=== PATIENT | male | born 1990 | race Caucasian/White ===

== ENCOUNTER 2019-08-26 17:39 | Emergency (ER) | payer MEDICAID, OTHER ==
[~2019-08-26] VITALS: Ht 185.4 cm; Wt 81.0 kg
[2019-08-26 17:45] VITALS: BP 132/85
--- NOTE | 2019-08-26 20:00 | NUR ---
PROVIDER LISSY AT BEDSIDE, EDUCATING ON SUBOXONE
[2019-08-26] MEDS ORDERED: HYDR-3686 PO (20:09)
[2019-08-26] MEDS ORDERED: ONDA4TAB6 PO (20:09)
[2019-08-26] MEDS ORDERED: CLON-529 PO (20:09)
== END 2019-08-26 20:25 | disposition home or self-care (01) ==
LOC: ER 17:40
DX: Z02.89 Encounter for other administrative examinations (principal); Z88.5 Allergy status to narcotic agent
CPT/HCPCS: 99283

== ENCOUNTER 2019-08-27 17:52 | Emergency (ER) | payer MEDICAID, OTHER ==
[~2019-08-27] VITALS: Ht 185.4 cm; Wt 81.8 kg
[~2019-08-27 17:52] MED LIST: CLON-529 PO; HYDR-3686 PO; ONDA4TAB6 PO
[2019-08-27 18:09] VITALS: BP 148/95
[2019-08-27] MEDS ORDERED: buprenorphine/naloxone 8mg/2mg SL tablet SL STA (18:17)
[2019-08-27] MEDS ORDERED: buprenorphine/naloxone 2-0.5mg sublingual tablet SL STA (18:24)
[2019-08-27] MEDS ORDERED: ondansetron 4mg rapidly disintigrating tab PO ONE (18:25)
== END 2019-08-27 19:08 | disposition home or self-care (01) ==
LOC: ER 17:53
DX: F11.23 Opioid dependence with withdrawal (principal); F17.200 Nicotine dependence, unspecified, uncomplicated; R10.30 Lower abdominal pain, unspecified; Z88.5 Allergy status to narcotic agent; Z79.899 Other long term (current) drug therapy
CPT/HCPCS: 99283

== ENCOUNTER 2019-09-05 14:40 | Emergency (ER) | payer MEDICAID, OTHER | END 2019-09-05 15:08 | disposition left against medical advice (07) | LOC: ER 14:40 | DX: H91.90 Unspecified hearing loss, unspecified ear (principal); Z53.21 Procedure and treatment not carried out due to patient leaving prior to being seen by health care provider ==

== ENCOUNTER 2019-11-14 11:33 | Emergency (ER) | payer SELFPAY ==
[~2019-11-14] VITALS: Ht 185.4 cm; Wt 83.4 kg
[~2019-11-14 11:33] MED LIST changes: -HYDR-3686 PO
[2019-11-14 11:46] VITALS: BP 132/79
[2019-11-14] MEDS ORDERED: CARB15DR91 EACH EAR (14:10)
== END 2019-11-14 14:16 | disposition home or self-care (01) ==
LOC: ER 11:33
DX: H61.23 Impacted cerumen, bilateral (principal); Z87.891 Personal history of nicotine dependence; Z56.0 Unemployment, unspecified; Z88.5 Allergy status to narcotic agent; Z79.899 Other long term (current) drug therapy
CPT/HCPCS: 69209; 99282

== ENCOUNTER 2019-11-16 14:45 | Emergency (ER) | payer OTHER ==
[~2019-11-16] VITALS: Ht 185.4 cm; Wt 84.0 kg
[~2019-11-16 14:45] MED LIST changes: +CARB15DR91 EACH EAR
[2019-11-16 14:49] VITALS: BP 128/84
--- NOTE | 2019-11-16 15:45 | NUR ---
Patient left without being seen, tried to call patient at home number listed. The phone number had been disconnected.
== END 2019-11-16 15:46 | disposition left against medical advice (07) ==
LOC: ER 14:45
DX: H92.01 Otalgia, right ear (principal); Z53.21 Procedure and treatment not carried out due to patient leaving prior to being seen by health care provider